=== PATIENT | female | born 1990 | race American Indian/Alaskan Native ===

== ENCOUNTER 2017-11-15 09:54 | Emergency (ER) | payer MEDICAID, OTHER ==
[2017-11-15] MEDS ORDERED: DECADRON IM STA (12:06)
[2017-11-15] MEDS ORDERED: ATROVENT IH ONE (12:06)
[2017-11-15] MEDS ORDERED: TORADOL IM ONE (12:06)
--- NOTE | 2017-11-15 12:06 | Emergency Department Report ---
HPI - General Chief Complaint: Upper Respiratory Infection Time Seen by Provider: 11/15/17 11:42 - HPI HPI: This is 27-year-old female who is here today reporting that she is having cough , chills and body ache. She reports that she has back soreness to her upper back. Denies any shortness of breath but reports wheezing. She said this started yesterday and prior to that she's been having problems with nasal congestion and runny nose and sore throat on and off. Generalized pain is 4 out of 10. Denies any pain with inspiration. Denies any nausea or vomiting. Denies any abdominal or lower back pain. Patient has a history of seizure disorder, arthritis and migraine headache. Pain to her upper back is worse with coughing. [id number] cough and cold did not help. She is reporting that she is feeling achy and all over and back is sore with coughing. ED Past Medical Hx - Past Medical History Previous Medical History?: Yes Hx Arthritis: Yes Hx Headaches / Migraines: Yes (migraines) Hx Seizures: Yes Additional medical history: Headaches - Surgical History Past Surgical History?: Yes Additional Surgical History: EGD - Family History Family history: hypertension - Social History Smoking Status: Current Every Day Smoker Substance Use Type: None - Medications Home Medications: Home Medications Medication Instructions Recorded Confirmed Last Taken Type Ranitidine HCl [Zantac] 300 mg PO QDAY #30 tablet 09/26/14 Unknown Rx Butalb/Acetaminophen/Caffeine 1 cap PO Q6HR PRN #60 cap 03/14/16 Unknown Rx [Fioricet 50-300-40 mg CAP] Phosphorus #1 [K-Phos Neutral] 250 mg PO BID #14 tablet 03/14/16 Unknown Rx levETIRAcetam [Keppra TAB] 1,000 mg PO Q12H #60 tablet 03/14/16 Unknown Rx ALBUTEROL Inhaler [ProAir HFA 2 puff IH Q6H PRN #1 inhalation 11/15/17 Unknown Rx Inhaler] Amoxicillin/K Clav Tab [Augmentin 1 tab PO Q12HR 1 Days #20 tab 11/15/17 Unknown Rx 875 mg] Cetirizine HCl [ZyrTEC] 10 mg PO QAM 14 Days #14 capsule 11/15/17 Unknown Rx Fluticasone [Flonase] 1 spray NS QDAY 14 Days #1 bottle 05/02/18 Unknown Rx Ibuprofen [Motrin] 600 mg PO Q8H PRN #12 tablet 11/15/17 Unknown Rx Prednisone 50 mg PO QAM 5 Days #5 tablet 11/15/17 Unknown Rx ED Review of Systems ROS: Stated complaint: CHILLS COLD SX Other details as noted in HPI Comment: All other systems reviewed and negative Constitutional: chills Eyes: denies: eye pain, eye discharge ENT: throat pain, congestion. denies: ear pain, dental pain, hearing loss, epistaxis Respiratory: cough, wheezing. denies: orthopnea, shortness of breath, SOB with exertion, SOB at rest, stridor Cardiovascular: denies: chest pain, palpitations, dyspnea on exertion, edema, syncope, paroxysmal nocturnal dyspnea Gastrointestinal: denies: abdominal pain, nausea, vomiting, diarrhea, constipation, hematemesis, melena, hematochezia Genitourinary: denies: urgency, dysuria, frequency, hematuria, discharge, abnormal menses Musculoskeletal: back pain (upper back pain with coughing), myalgia. denies: joint swelling, arthralgia Skin: denies: rash Neurological: denies: headache, abnormal gait, vertigo Physical Exam - Physical Exam Vital Signs: Vital Signs 11/15/17 09:58 Temperature 98.9 F Pulse Rate 89 Respiratory 17 Rate Blood Pressure 143/96 O2 Sat by Pulse 100 Oximetry General: This is a 27-year-old female well-nourished well-developed in no acute distress Physical Exam: Head: Normocephalic atraumatic Ears:BIateral TM congested without erythema and loss of bony landmarks. Hammad EAC with normal exam. No mastoid bone tenderness. Mouth: Moist, no pharyngeal erythema or exudate . No tonsillar erythema or exudate. UVULA midline and oral airways patent. No peritonsillar abscess Neck: Nontender to palpate, supple, normal range of motion. No adenopathy. No c- spine tenderness. Nose: Bilateral nasal mucosa congested with clear drainage. Maxillary and frontal sinuses non-tender to palpate. Eyes: Bilateral Sclerae and conjunctiva without injection. Bilateral pupils equal and reactive to light. Bilateral lids are normal. Normal accommodation.BEOMI Lungs: Wheezing to upper and lower lung ybarra. Congested cough, Normal work of breathing and no chest wall tenderness. No crepitus to chest wall Extremity: Without clubbing, cyanosis or edema. +2 pulses to all extremities and no neurovascular compromise Back: No vertebral or paraspinal tenderness. Full range of motion. Normal inspection CV: S1, S2. Regular rate and rhythm negative murmur. Capillary refill is less than 3 seconds Skin: Clean dry and intact, no rashes or lesions Psych: Normal mood and behavior ED Course Vital Signs 11/15/17 09:58 Temperature 98.9 F Pulse Rate 89 Respiratory 17 Rate Blood Pressure 143/96 O2 Sat by Pulse 100 Oximetry Vital Signs 11/15/17 11/15/17 09:58 12:59 Temperature 98.9 F 99 F Pulse Rate 89 87 Respiratory 17 20 Rate Blood Pressure 143/96 Blood Pressure 128/81 [Right] O2 Sat by Pulse 100 99 Oximetry - Reevaluation(s) Reevaluation #1: 11/15/17 12:25 Patient received Decadron 10 mg IM, Toradol 60 mg IM, albuterol 5 mg nebulizer and #1 mg nebulizer for pain and cough wheezing. She is stable on recheck after completion of nebulizer treatment. Tolerating oral fluids okay 11/15/17 12:39 ED Medical Decision Making - Radiology Data Radiology results: report reviewed Chest x-ray reveals no acute cardiopulmonary processes - Medical Decision Making ED Course: In here complaining that she is having chills, soreness generalized aching and coughing that started yesterday but proceeded by nasal congestion and runny nose over the last couple weeks. Patient had x-ray that showed no acute cardiopulmonary findings. She was given Toradol 60 mg IM in emergency room for pain, Decadron 10 mg IM, and albuterol 5 mg and Atrovent 1 mg nebulizer. A further evaluation of lungs ,her lung sounds are better and she says she feels better. I discussed with patient her diagnosis, x-ray results and she was understanding she also knows that she'll need to follow up with her primary care physician in 2 days. Patient with upper respiratory tract infection with cough and congestion and acute bronchitis. Discharged home with prescription for albuterol inhaler, prednisone, Zyrtec, Flonase, Motrin and Augmentin. Critical care attestation.: If time is entered above; I have spent that time in minutes in the direct care of this critically ill patient, excluding procedure time. ED Disposition Clinical Impression: URI with cough and congestion, Musculoskeletal pain Acute bronchitis Qualifiers: Bronchitis organism: unspecified organism Qualified Code(s): J20.9 - Acute bronchitis, unspecified Disposition: DC- TO HOME OR SELFCARE Is pt being admited?: No Does the pt Need Aspirin: No Condition: Stable Instructions: Upper Respiratory Infection (ED), Acute Bronchitis (ED), Musculoskeletal Pain (ED), Acute Cough (ED) Additional Instructions: Please follow up with primary care as recommended Increase fluid intake Take medication as prescribed . Prescriptions: ALBUTEROL Inhaler [ProAir HFA Inhaler] 2 puff IH Q6H PRN #1 inhalation PRN Reason: wheezing and cough Amoxicillin/K Clav Tab [Augmentin 875 mg] 1 tab PO Q12HR 1 Days #20 tab Cetirizine HCl [ZyrTEC] 10 mg PO QAM 14 Days #14 capsule Fluticasone [Flonase] 1 spray NS QDAY 14 Days #1 bottle Ibuprofen [Motrin] 600 mg PO Q8H PRN #12 tablet PRN Reason: Pain Prednisone 50 mg PO QAM 5 Days #5 tablet Referrals: SARAHY BAUMAN FNP [Primary Care Provider] - 11/17/17 [facility] [Outside] - 11/17/17 Forms: Accompanied Note, Work/School Release Form(ED)
[2017-11-15] MEDS ORDERED: PROVENTIL IH ONE (12:08)
--- NOTE | 2017-11-15 12:30 | XRay Report ---
ROUTINE CHEST, TWO VIEWS: HISTORY: Cough, wheezing, chills. The trachea, heart, mediastinal contour, lung ybarra and bony thorax are unremarkable. No significant change since 03/12/16. IMPRESSION: Unremarkable chest x-ray.
[2017-11-15 12:59] VITALS: BP 128/81
== END 2017-11-15 12:59 | disposition home or self-care (01) ==
LOC: ED 09:54
DX: J20.9 Acute bronchitis, unspecified (principal); M19.90 Unspecified osteoarthritis, unspecified site; G43.909 Migraine, unspecified, not intractable, without status migrainosus; F17.200 Nicotine dependence, unspecified, uncomplicated
CPT/HCPCS: 71046; 94640; 96372; 99283; J1100; J1885

== ENCOUNTER 2018-01-21 13:30 | Emergency (ER) | payer SELFPAY ==
[2018-01-21 13:39] VITALS: BP 138/99
== END 2018-01-21 13:39 | disposition left against medical advice (07) ==
LOC: ED 13:30
DX: R51 Headache (principal); Z53.21 Procedure and treatment not carried out due to patient leaving prior to being seen by health care provider

== ENCOUNTER 2018-02-13 20:40 | Emergency (ER) | payer MEDICAID, OTHER ==
[2018-02-13 21:28] LABS: Bilirubin,Urine NEG (Negative); Blood,Urine SM (Negative); Color,Urine Straw (Yellow); Protein,Urine <15 mg/dL mg/dL (Negative); Urobilinogen,Urine < 2.0 mg/dL (<2.0)
[2018-02-13 21:36] LABS: HCG Qualitative,Urine Negative (Negative)
== END 2018-02-13 22:30 | disposition left against medical advice (07) ==
LOC: ED 20:40
DX: Z53.21 Procedure and treatment not carried out due to patient leaving prior to being seen by health care provider (principal)
CPT/HCPCS: 81001; 81025

== ENCOUNTER 2020-04-01 20:05 | Emergency (ER) | payer MEDICAID, OTHER ==
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
[2020-04-01 21:22] VITALS: BP 156/100
--- NOTE | 2020-04-01 22:19 | XRay Report ---
LEFT ELBOW 3 VIEW(S) INDICATION / CLINICAL INFORMATION: Elbow pain COMPARISON: None available. FINDINGS: BONES / JOINT(S): No acute fracture or subluxation. No significant arthritis. SOFT TISSUES: No significant abnormality. ADDITIONAL FINDINGS: None. Signer Name: Uriel Bolanos MD Signed: 04/01/2020 10:14 PM Workstation Name: [id number]
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
== END 2020-04-01 23:26 | disposition left against medical advice (07) ==
LOC: ED 20:05
DX: M54.2 Cervicalgia (principal); M54.5 Low back pain; M25.522 Pain in left elbow; Z53.21 Procedure and treatment not carried out due to patient leaving prior to being seen by health care provider
CPT/HCPCS: 72040; 72100